=== PATIENT | female | born 1985 | race Caucasian/White ===

== ENCOUNTER 2018-11-06 20:45 | Emergency (ER) | payer OTHER ==
--- OUTSIDE RECORDS SUMMARY | 2018-11-06 20:47 | XMS REPORT ---
:1985 Author Organization eClinicalWorks Care Team Providers Name Role Phone Xavier Curiel Provider Role Unavailable Allergies No Known Allergies Problems Problem Type Condition Code Onset Dates Condition Status Problem Mood disorder F39 Active Problem Panic disorder without agoraphobia F41.0 Active with mild panic attacks Problem Depression with anxiety F41.8 Active Assessment Depression with anxiety F41.8 Active Medications Medication Code Code Instructions Start End Status Dosage System Date Date Microgestin 24 NDC 0 Active not Fe defined Trintellix [facility] 09057983935 10 MG Orally Jan 26, Active 0.5 tab Once a day 2018 once daily x 7 days, then 1 tablet daily BusPIRone HCl [facility] [id number] 10 MG Orally Active 1 tab Twice a day Zoloft [facility] [id number] 100 MG Orally Inactive 1 tablet Once a day Results No Known Results Summary Purpose eClinicalWorks Submission
[2018-11-06 22:08] LABS: Absolute Lymphocytes (CBC) 2.5 K/uL (0.7-4.9); Basophils % 0.9 % (0-1.3); Hematocrit 40.7 % (36.0-45.0); MPV 10.3 fL (7.6-11.3); RBC Red Blood Cell Count 4.41 M/uL (3.86-4.86)
[2018-11-06 22:11] LABS: Urine Blood NEGATIVE (NEG); Urine Glucose NEGATIVE (NEG); Urine Protein NEGATIVE (NEG); Urine Specific Gravity 1.015 (1.005-1.030)
[2018-11-06] MEDS ORDERED: ONDANSETRON 4 MG/2 ML VIAL ONE (22:13)
[2018-11-06] MEDS ORDERED: FAMOTIDINE 20 MG/2 ML VIAL IV ONE (22:13)
[2018-11-06] MEDS ORDERED: NA CHLORIDE 0.9% 1,000 ML ONE (22:13)
[2018-11-06 22:18] LABS: ALT/SGPT 28 U/L (12-78); AST/SGOT 14 U/L (15-37); Albumin 4.3 g/dL (3.4-5.0); Alkaline Phosphatase 71 U/L (45-117); BUN Blood Urea Nitrogen 13 mg/dL (7-18); Bicarbonate 31 mmol/L (21-32); Bilirubin Direct < 0.1 mg/dL (0-0.2); Bilirubin Total 0.3 mg/dL (0.2-1.0); Glucose Level 78 mg/dL (74-106); Lipase 126 U/L (73-393); Potassium 4.3 mmol/L (3.5-5.1); Protein, Total 7.6 g/dL (6.4-8.2); Sodium Level 141 mmol/L (136-145)
[2018-11-06 22:25] LABS: Urine Amorphous Sediment TRACE /HPF (NONE SEEN); Urine Bacteria <20 /HPF (<20); Urine Culture Reflex Order NOT NEEDED; Urine RBC NONE SEEN /HPF (NONE SEEN)
[2018-11-06] MEDS ORDERED: MAGNE/ALUM HYDROXD 30 ML UCUP ONE (23:06)
[2018-11-06] MEDS ORDERED: LIDOCAINE VISCOUS 2% SOLN 15 ML UDC ONE (23:06)
--- NOTE | 2018-11-06 23:12 | ER ---
Nurse's Notes [facility] Name: Kelsey Carrera Age: 33 yrs Sex: Female : 1985 Arrival Date: 11/06/2018 Time: 20:47 Bed 23 [facility] MD: Diagnosis: Epigastric pain Presentation: 11/06 20:50 Presenting complaint: Patient states: LUQ pain for 2 hours, denies N/V. Transition of aj care: patient was not received from another setting of care. Onset of symptoms was November 06, 2018. Risk Assessment: Do you want to hurt yourself or someone else? Patient reports no desire to harm self or others. Initial Sepsis Screen: Does the patient meet any 2 criteria? No. Patient's initial sepsis screen is negative. Does the patient have a suspected source of infection? No. Patient's initial sepsis screen is negative. Care prior to arrival: None. 20:50 Method Of Arrival: Ambulatory aj 20:50 Acuity: KEITH 3 aj Triage Assessment: 20:50 General: Appears in no apparent distress. comfortable, Behavior is calm, cooperative, aj appropriate for age. Pain: Complains of pain in left upper quadrant. Neuro: Level of Consciousness is awake, alert, obeys commands, Oriented to person, place, time, situation, Appropriate for age. Respiratory: Airway is patent Respiratory effort is even, unlabored, Respiratory pattern is regular, symmetrical. GI: Reports upper abdominal pain. Derm: Skin is intact, is healthy with good turgor, Skin is pink, warm \T\ dry. normal. 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 - Social history:: Smoking status: unknown. - Ebola Screening: : No symptoms or risks identified at this time. Screenin:25 Abuse screen: Denies threats or abuse. Denies injuries from another. Nutritional rv screening: No deficits noted. Tuberculosis screening: No symptoms or risk factors identified. Fall Risk None identified. Assessment: 22:30 General: Appears in no apparent distress. comfortable, Behavior is calm, cooperative. rv 22:30 Pain: Complains of pain in abdomen. Neuro: Level of Consciousness is awake, alert, rv obeys commands, Oriented to person, place, time, situation. Cardiovascular: Patient's skin is warm and dry. Respiratory: Airway is patent. GI: Abdomen is round non-distended, Bowel sounds present X 4 quads. Abd is soft and non tender X 4 quads. : No signs and/or symptoms were reported regarding the genitourinary system. EENT: No signs and/or symptoms were reported regarding the EENT system. Derm: Skin is intact. Musculoskeletal: No signs and/or symptoms reported regarding the musculoskeletal system. Vital Signs: 20:50 BP 147 / 84; Pulse 65; Resp 16; Temp 98.8; Pulse Ox 100% on R/A; Weight 82.1 kg; Height aj 5 ft. 8 in. (172.72 cm); 20:50 Body Mass Index 27.52 (82.10 kg, 172.72 cm) ED Course: 20:47 Patient arrived in ED. ds1 20:50 Arm band placed on right wrist. Patient placed in waiting room, Patient notified of wait time. 20:51 Triage completed. aj 21:30 Braden Flores PA is PHCP. cp 21:30 Bonifacio Velasquez MD is Attending Physician. cp 21:34 Taiwo Palma RN is Primary Nurse. rv 22:00 Patient has correct armband on for positive identification. Placed in gown. Bed in low rv position. Call light in reach. Side rails up X 1. Adult w/ patient. Pulse ox on. NIBP on. 22:00 No provider procedures requiring assistance completed. rv 22:02 Urine Microscopic Only Sent. lt1 22:15 US Abdomen Limited: RUQ/epigastric area In Process Unspecified. EDMS 23:06 XRAY Abdomen With Erect In Process Unspecified. EDMS 23:29 Inserted saline lock: 20 gauge in right antecubital area, using aseptic technique. rv Blood collected. IV discontinued, intact, bleeding controlled, No redness/swelling at site. Pressure dressing applied. Administered Medications: 22:06 Drug: NS 0.9% 1000 ml Route: IV; Rate: 1 bolus; Site: right antecubital; rv 23:05 Follow up: IV Status: Completed infusion rv 22:07 Drug: Zofran 4 mg Route: IVP; Site: right antecubital; rv 23:05 Follow up: Response: No adverse reaction rv 22:07 Drug: Pepcid 20 mg Route: IVP; Site: right antecubital; rv 23:05 Follow up: Response: No adverse reaction rv 23:04 Drug: GI Cocktail without - (Maalox Suspension 30 ml, Lidocaine Liquid 2 % 15 rv ml) Route: PO; 23:23 Follow up: Response: No adverse reaction rv Outcome: 23:11 Discharge ordered by MD. cp 23:29 Discharged to home ambulatory. rv 23:29 Condition: good 23:29 Discharge instructions given to patient, family, Instructed on discharge instructions, follow up and referral plans. medication usage, Demonstrated understanding of instructions, follow-up care, medications, Prescriptions given X 2. 23:29 Patient left the ED. rv Signatures: Dispatcher [employer] Rebecca Brownlee RN RN Dee Vidal ds1 Braden Flores PA PA Taiwo Valenzuela RN RN rv Tran, Leah lt1
--- NOTE | 2018-11-06 23:12 | EDPHYS ---
Physician Documentation [facility] Name: Kelsey Carrera Age: 33 yrs Sex: Female : 1985 Arrival Date: 11/06/2018 Time: 20:47 Bed 23 Private MD: ED Physician Bonifacio Velasquez HPI: 11/06 21:50 This 33 yrs old Female presents to ER via Ambulatory with complaints of cp Abdominal Pain. 21:50 The patient presents with abdominal pain in the epigastric area. cp 21:50 Onset: The symptoms/episode began/occurred 2 hour(s) ago. cp 21:50 The symptoms do not radiate. Associated signs and symptoms: Pertinent positives: cp nausea, Pertinent negatives: blood in stools, constipation, diarrhea, dysuria, fever, vomiting. The symptoms are described as constant. Modifying factors: the symptoms are aggravated by pressure. Severity of pain: in the emergency department the pain is unchanged despite home interventions. 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 - Social history:: Smoking status: unknown. - Ebola Screening: : No symptoms or risks identified at this time. ROS: 22:00 Eyes: Negative for injury, pain, redness, and discharge. cp 22:00 Constitutional: Negative for body aches, chills, fever, poor PO intake. 22:00 ENT: Negative for ear pain. cp 22:00 Cardiovascular: Negative for chest pain, palpitations. 22:00 Respiratory: Negative for cough, shortness of breath, wheezing. 22:00 Abdomen/GI: Positive for abdominal pain, nausea, Negative for vomiting, constipation, anorexia, black/tarry stool, rectal bleeding. 22:00 Back: Negative for pain at rest, pain with movement, radiated pain. 22:00 : Negative for urinary symptoms. 22:00 Neuro: Negative for altered mental status, headache, weakness. 22:00 All other systems are negative. Exam: 22:10 Constitutional: The patient appears in no acute distress, alert, awake, cp non-diaphoretic, well developed, well nourished. 22:10 Head/Face: Normocephalic, atraumatic. cp 22:10 Eyes: Periorbital structures: appear normal, Conjunctiva: normal, no exudate, no cp injection, Sclera: no appreciated abnormality, Lids and lashes: appear normal, bilaterally. 22:10 ENT: External ear(s): are unremarkable, Nose: is normal, Mouth: Lips: moist, Oral cp mucosa: pink and intact, moist, Posterior pharynx: is normal, airway is patent, no erythema, no exudate. 22:10 Neck: ROM/movement: is normal, is supple, without pain, no range of motions limitations, no nuchal rigidity. 22:10 Chest/axilla: Inspection: normal, Palpation: is normal, no crepitus, no tenderness. 22:10 Cardiovascular: Rate: normal, Rhythm: regular. 22:10 Respiratory: the patient does not display signs of respiratory distress, Respirations: normal, no use of accessory muscles, no retractions, no splinting, no tachypnea, labored breathing, is not present, Breath sounds: are clear throughout, no decreased breath sounds, no stridor, no wheezing. 22:10 Abdomen/GI: Inspection: abdomen appears normal, Bowel sounds: active, all quadrants, Palpation: soft, in all quadrants, moderate abdominal tenderness, in the epigastric area, rebound tenderness, is not appreciated, involuntary guarding, is not appreciated. 22:10 Back: pain, is absent, ROM is normal. Vital Signs: 20:50 BP 147 / 84; Pulse 65; Resp 16; Temp 98.8; Pulse Ox 100% on R/A; Weight 82.1 kg; Height aj 5 ft. 8 in. (172.72 cm); 20:50 Body Mass Index 27.52 (82.10 kg, 172.72 cm) aj MDM: 21:39 Patient medically screened. cp 22:00 Differential diagnosis: appendicitis, bowel obstruction, cholecystitis, Cholelithiasis, cp non-specific abd pain, pancreatitis, Peptic Ulcer Disease, Perf. Duodenal Ulcer, Perf. Gastric Ulcer, Pyelonephritis, Ureterolithiasis, urinary tract infection. 23:10 Data reviewed: vital signs, nurses notes, lab test result(s), radiologic studies, plain cp films, ultrasound. 11/06 21:40 Order name: Basic Metabolic Panel; Complete Time: 22:34 cp 11/06 21:40 Order name: CBC with Diff; Complete Time: 22:34 cp 11/06 21:40 Order name: Creatinine for Radiology; Complete Time: 22:34 11/06 21:40 Order name: Hepatic Function; Complete Time: 22:34 11/06 21:40 Order name: Lipase; Complete Time: 22:34 11/06 21:48 Order name: Urine Microscopic Only; Complete Time: 22:34 11/06 21:48 Order name: US Abdomen Limited: RUQ/epigastric area 11/06 22:05 Order name: Urine Dipstick--Ancillary (enter results) [facility] 11/06 22:05 Order name: Urine --Ancillary (enter results); Complete Time: 22:34 [facility] 11/06 22:34 Order name: XRAY Abdomen With Erect 11/06 21:40 Order name: IV Saline Lock; Complete Time: 22:20 11/06 21:40 Order name: Labs collected and sent; Complete Time: 22:20 cp 11/06 21:48 Order name: Urine Dipstick-Ancillary (obtain specimen); Complete Time: 22:02 11/06 21:48 Order name: Urine Test (obtain specimen); Complete Time: 22:02 11/06 21:48 Order name: NPO; Complete Time: 22:20 cp Administered Medications: 22:06 Drug: NS 0.9% 1000 ml Route: IV; Rate: 1 bolus; Site: right antecubital; rv 23:05 Follow up: IV Status: Completed infusion rv 22:07 Drug: Zofran 4 mg Route: IVP; Site: right antecubital; rv 23:05 Follow up: Response: No adverse reaction rv 22:07 Drug: Pepcid 20 mg Route: IVP; Site: right antecubital; rv 23:05 Follow up: Response: No adverse reaction rv 23:04 Drug: GI Cocktail without - (Maalox Suspension 30 ml, Lidocaine Liquid 2 % 15 rv ml) Route: PO; 23:23 Follow up: Response: No adverse reaction rv Disposition: 11/07 06:12 Co-signature as Attending Physician, Bonifacio Velasquez MD I agree with the assessment and tw4 plan of care. Disposition: 11/06/18 23:11 Discharged to Home. Impression: Epigastric pain. - Condition is Stable. - Discharge Instructions: Abdominal Pain, Adult, Gastroesophageal Reflux Disease, Adult. - Prescriptions for Protonix 40 mg Oral Tablet - take 1 tablet by ORAL route once daily; 30 tablet. Zofran 4 mg Oral Tablet - take 1 tablet by ORAL route every 12 hours As needed; 20 tablet. - Medication Reconciliation Form, Thank You Letter, Antibiotic Education, Prescription Opioid Use form. - Follow up: Private Physician; When: 1 week; Reason: symptoms continue. - Problem is new. - Symptoms have improved. Signatures: Dispatcher [employer] EDRebecca Cox, RN RN Braden Hastings PA PA cp Wadley, Terrence, MD MD tw4 Taiwo Palma RN RN rv Corrections: (The following items were deleted from the chart) 11/06 23:29 23:11 11/06/2018 23:11 Discharged to Home. Impression: Epigastric pain. Condition is rv Stable. Forms are Medication Reconciliation Form, Thank You Letter, Antibiotic Education, Prescription Opioid Use. Follow up: Private Physician; When: 1 week; Reason: symptoms continue. Problem is new. Symptoms have improved. cp
--- NOTE | 2018-11-07 07:44 | RAD REPORT ---
EXAM DESCRIPTION: US - Abdomen Exam Limited - 11/06/2018 10:14 pm CLINICAL HISTORY: Abdominal pain Preliminary findings provided at the time of the study. COMPARISON: None. FINDINGS: No gallstones, sludge or other abnormalities within the gallbladder lumen. Gallbladder is contracted which accentuates wall thickness. No pericholecystic fluid. No common duct stone or biliary tree dilatation identified. IMPRESSION: Gallbladder is contracted. No stone or intraluminal abnormality seen. No biliary tree abnormality seen.
--- NOTE | 2018-11-07 07:49 | RAD REPORT ---
EXAM DESCRIPTION: RAD - Abdomen W Erect - 11/06/2018 11:04 pm CLINICAL HISTORY: Epigastric pain COMPARISON: None. TECHNIQUE: Supine and upright views of the abdomen were obtained. FINDINGS: Bowel gas pattern is nonspecific. No obstruction, free air or pneumatosis. Costochondral c alcifications are present. No renal or ureteral calculi identifiable. No bony abnormality seen. IMPRESSION: Negative two-view abdomen examination.
== END 2018-11-06 23:29 | disposition home or self-care (01) ==
LOC: ER 20:45
DX: R10.13 Epigastric pain (principal)
CPT/HCPCS: 36415; 74019; 76705; 80048; 80076; 81003; 81015; 81025; 83690; 85025; 96361; 96374; 96375; 99284; J2405; J7030